=== PATIENT | female | born 1990 | race Two or more races ===

== ENCOUNTER 2016-11-25 18:10 | Observation (INO) | payer MEDICAID ==
[~2016-11-25] VITALS: Ht 160 cm; Wt 79.4 kg
[~2016-11-25 18:10] MED LIST: [UNRECOGNIZED DRUG - CODE] OR
[2016-11-25] MEDS ORDERED: TERBUTALINE SULFATE 1 MG/ML 1ML VIAL SC ONE (18:49)
== END 2016-11-25 20:15 | disposition home or self-care (01) | DRG 566 ==
LOC: LDRP 18:10
PROVIDERS: ADMIT Obstetrics & Gynecology; ATTEND Obstetrics & Gynecology
DX: O42.913 Preterm premature rupture of membranes, unspecified as to length of time between rupture and onset of labor, third trimester (principal); Z3A.36 36 weeks gestation of pregnancy
CPT/HCPCS: 59025; 81002; G0378; J3105

== ENCOUNTER 2016-11-28 17:55 | Observation (INO) | payer MEDICAID | END 2016-11-28 19:53 | disposition home or self-care (01) | DRG 566 | LOC: LDRP 17:55 | PROVIDERS: ADMIT Specialist; ATTEND Specialist | DX: O62.9 Abnormality of forces of labor, unspecified (principal); Z3A.37 37 weeks gestation of pregnancy | CPT/HCPCS: 59025; 81002; G0378 ==

== ENCOUNTER 2016-12-07 19:51 | Observation (INO) | payer MEDICAID | END 2016-12-07 20:55 | disposition home or self-care (01) | DRG 565 | LOC: LDRP 19:51 | PROVIDERS: ADMIT Obstetrics & Gynecology; ATTEND Obstetrics & Gynecology | DX: O47.1 False labor at or after 37 completed weeks of gestation (principal); O26.893 Other specified pregnancy related conditions, third trimester; R10.9 Unspecified abdominal pain; Z3A.38 38 weeks gestation of pregnancy | CPT/HCPCS: 59025; 81002; G0378 ==

== ENCOUNTER 2016-12-15 15:20 | Observation (INO) | payer MEDICAID ==
[2016-12-15] MEDS ORDERED: PREN-153 OR (15:54)
== END 2016-12-15 16:55 | disposition home or self-care (01) | DRG 566 ==
LOC: LDRP 15:20
PROVIDERS: ADMIT Specialist; ATTEND Specialist
DX: O62.9 Abnormality of forces of labor, unspecified (principal); Z3A.39 39 weeks gestation of pregnancy
CPT/HCPCS: 59025; 76818; 81002; G0378

== ENCOUNTER 2016-12-17 14:00 | Observation (INO) | payer MEDICAID ==
[~2016-12-17 14:00] MED LIST changes: +PREN-153 OR
== END 2016-12-17 19:15 | disposition home or self-care (01) | DRG 566 ==
LOC: LDRP 14:00
PROVIDERS: ADMIT Specialist; ATTEND Specialist
DX: O36.8130 Decreased fetal movements, third trimester, not applicable or unspecified (principal); O48.0 Post-term pregnancy; Z3A.40 40 weeks gestation of pregnancy
CPT/HCPCS: 59025; 76818; 81002; G0378; 96365; 96366

== ENCOUNTER 2016-12-18 21:35 | Observation (INO) | payer MEDICAID ==
[2016-12-19] MEDS ORDERED: LACT. RINGERS/OXYTOCIN 20UNITS 1,000 ML IV ONE (04:55)
== END 2016-12-18 22:40 | disposition home or self-care (01) | DRG 566 ==
LOC: LDRP 21:35
PROVIDERS: ADMIT Obstetrics & Gynecology; ATTEND Obstetrics & Gynecology
DX: O26.893 Other specified pregnancy related conditions, third trimester (principal); M54.9 Dorsalgia, unspecified; R10.9 Unspecified abdominal pain; Z3A.40 40 weeks gestation of pregnancy
CPT/HCPCS: 59025; 81002; G0378

== ENCOUNTER 2016-12-19 10:40 | Observation (INO) | payer MEDICAID | END 2016-12-19 14:05 | disposition home or self-care (01) | DRG 566 | LOC: LDRP 10:40 | PROVIDERS: ADMIT Obstetrics & Gynecology; ATTEND Obstetrics & Gynecology | DX: O48.0 Post-term pregnancy (principal); Z3A.40 40 weeks gestation of pregnancy | CPT/HCPCS: 59025; 76818; 81002; G0378; J2590 ==